=== PATIENT | female | born 1945 | race Caucasian/White ===

== ENCOUNTER → 2016-10-02 | Outpatient (CLI) | payer OTHER | LOC: MMPC 11:11 | PROVIDERS: ATTEND Internal Medicine | DX: E78.5 Hyperlipidemia, unspecified (principal); M54.6 Pain in thoracic spine; K21.0 Gastro-esophageal reflux disease with esophagitis; M54.5 Low back pain; Z12.31 Encounter for screening mammogram for malignant neoplasm of breast | CPT/HCPCS: 99213 ==

== ENCOUNTER → 2016-10-03 | Outpatient (CLI) | payer OTHER ==
[2016-10-03 09:04] LABS: LDL CHOLESTEROL,CALCULATED 98.4 mg/dL
[2016-10-03 13:30] LABS: BILIRUBIN,URINE NEGATIVE (NEG); CLARITY,URINE CLEAR (CLEAR); GLUCOSE, URINE (UA) NEGATIVE (NEG); LEUKOCYTE ESTERASE ,URINE NEGATIVE (NEG); NITRATE,URINE NEGATIVE (NEG); OCCULT BLOOD,URINE Trace-intact (NEG); PH,URINE 6.5 (5.0-8.5); PROTEIN,URINE TRACE mg/dl (NEG); UROBILINOGEN,URINE 0.2 mg/dL (0.2)
[2016-10-03 13:53] LABS: RBC,URINE 0-2 /hpf; SQUAMOUS EPITHELIAL CELL,UR RARE; URINE SAMPLE TYPE CLEAN CATCH URINE; WBC,URINE 0-1
== END ==
LOC: LAB 08:00
PROVIDERS: ATTEND Internal Medicine
DX: R03.0 Elevated blood-pressure reading, without diagnosis of hypertension (principal); E78.5 Hyperlipidemia, unspecified; L85.3 Xerosis cutis
CPT/HCPCS: 36415; 80061; 81001; 84443